=== PATIENT | female | born 1960 | race Caucasian/White ===

== ENCOUNTER → 2023-05-20 15:21 | Outpatient (CLI) | payer OTHER, SELFPAY ==
--- NOTE | ~2023-05-20 | MR_ITS ---
EXAMINATION: MR knee RT wo con DATE: 05/20/2023 16:17 INDICATION: R knee pain TECHNIQUE: Magnetic resonance imaging (MRI) of the right knee was performed without intravenous contr ast. Sequences included axial PD-weighted FS FSE, coronal PD-weighted FSE and PD-weighted FS FSE, sag ittal PD-weighted FSE, and sagittal T2-weighted FS FSE. COMPARISON: None. FINDINGS: Medial compartment: Abnormal signal in the posterior horn, medial meniscus, with oblique abnormal signal extending to the articular surface, the meniscal undersurface, and an apical tear. Moderate diffuse cartilage thinnin g. No focal cartilage defect. Lateral compartment: Meniscus and cartilage intact. Patellofemoral compartment: Retinacula intact. Moderate diffuse cartilage thinning along the medial facet and median ridge. Ligaments and tendons: The ACL, PCL, MCL, and LCL are intact. Remaining flexor and extensor tendons are intact. Fluid: Small volume joint fluid. Osseous/other: Mild marrow edema in the MFC, with linear low signal T1 and T2 abnormality in the subchondral bone. IMPRESSION: Complex tear of the posterior horn, medial meniscus. Marrow edema and small subchondral fracture in the MFC. Reviewed, dictated and finalized at location K.
== END ==
PROVIDERS: PCP Internal Medicine; Visit Provider Orthopaedic Surgery
DX: S83.231A Complex tear of medial meniscus, current injury, right knee, initial encounter (principal); S72.431A Displaced fracture of medial condyle of right femur, initial encounter for closed fracture
CPT/HCPCS: 73721